=== PATIENT | male | born 1985 | race Hispanic/Latino ===

== ENCOUNTER 2017-01-27 14:27 | Emergency (ER) | payer SELFPAY ==
[~2017-01-27] VITALS: Ht 170.2 cm; Wt 95.0 kg
[2017-01-27] MEDS ORDERED: AMOXICILLIN500 MG PO (15:12)
[2017-01-27 15:44] VITALS: BP 143/91
== END 2017-01-27 15:45 | disposition home or self-care (01) | DRG 950 ==
LOC: ED 14:27
DX: S31.119D Laceration without foreign body of abdominal wall, unspecified quadrant without penetration into peritoneal cavity, subsequent encounter (principal); F17.210 Nicotine dependence, cigarettes, uncomplicated; W26.9XXD Contact with unspecified sharp object(s), subsequent encounter